=== PATIENT | female | born 1960 | race Caucasian/White ===

== ENCOUNTER 2021-02-04 16:13 | Outpatient (REF) | payer BC, SELFPAY ==
--- NOTE | ~2021-02-04 | CT_ITS ---
EXAMINATION: CT PELVIS WITHOUT CONTRAST CT RIGHT HIP WITHOUT CONTRAST CT LEFT HIP WITHOUT CONTRAST CLINICAL INFORMATION: Sacroiliitis. COMPARISON: Outside pelvic radiograph dated 09/13/2020, lumbar spine MRI dated 12/03/2019, and hip and pelvic radiographs dated 07/03/2016. TECHNIQUE: Axial CT images of the pelvis were obtained without contrast. Axial CT images of the right hip were obtained without contrast. Axial CT images of the left hip were obtained without contrast. Sagittal and coronal reformats were provided and reviewed. Additional oblique reformats were obtained of the right and left hip. This CT examination was performed using dose optimization techniques as appropriate, variously including the following: *Automated exposure control *Adjustment of mA and/or kV according to patient size (this includes techniques or standardized protocols for targeted exams where dose is matched to indication/reason for exam; i.e. extremities or head) *Use of iterative reconstruction technique DOSE: 728 mGy-cm. FINDINGS: Pelvis: No intrapelvic mass or fluid collection. The visualized pelvic bowel loops are unremarkable. Unremarkable appendix. Uterus and adnexa are unremarkable. Small, fat-containing periumbilical hernia. Moderate degenerative disc disease at L5-S1 with bilateral lower lumbar spine facet arthropathy, similar when compared to the prior examination. Mild bilateral superior joint space narrowing with a small amount of intra-articular air as well as tiny marginal osteophytes. No associated erosion or sclerosis. No osseous bridging. Right hip: No acute fracture or dislocation. No significant joint space narrowing. Small acetabular marginal osteophytes. Mild lateral acetabular subchondral cystic change. No concerning lytic or blastic osseous lesion. No abnormal soft tissue mass or fluid collection. Left hip: No acute fracture or dislocation. No significant joint space narrowing. Small lateral acetabular marginal osteophytes. No lytic osseous lesion. Probable bone island within the femoral neck. No abnormal soft tissue mass or fluid collection. 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 No associated osseous erosion or inflammatory change. Degenerative disc disease and bilateral facet arthropathy redemonstrated within the lower lumbar spine. Right Hip: Mild osteoarthritis. No acute osseous abnormality. Left Hip: Mild osteoarthritis. No acute osseous abnormality.
== END 2021-02-04 16:14 | disposition home or self-care (01) ==
LOC: HO.CT 16:13
PROVIDERS: Visit Provider Physical Medicine & Rehabilitation
DX: M46.1 Sacroiliitis, not elsewhere classified (principal); M47.816 Spondylosis without myelopathy or radiculopathy, lumbar region; M51.36 Other intervertebral disc degeneration, lumbar region; M16.0 Bilateral primary osteoarthritis of hip
CPT/HCPCS: 72192; 73700